=== PATIENT | female | born 1945 | race Caucasian/White ===

== ENCOUNTER 2019-11-04 11:29 | Observation (INO) | payer MEDICARE ==
[~2019-11-04] VITALS: Ht 162.6 cm; Wt 80.0 kg
[2019-11-04 12:24] LABS: BASOPHILS % (AUTO) 0.7 % (0-1); EOSINOPHILS # (AUTO) 0.3 X10'3 (0-0.9); EOSINOPHILS % (AUTO) 4.2 % (0-6); HEMATOCRIT 39.7 % (35.0-45.0); HEMOGLOBIN 13.4 g/dl (12.0-16.0); LYMPHOCYTES # (AUTO) 2.4 X10'3 (1.1-4.8); MEAN CORPUSCULAR HEMOGLOBIN 31.5 PG (27.0-31.0); MEAN CORPUSCULAR HGB CONC 33.6 g/dL (33.0-36.5); MEAN CORPUSCULAR VOLUME 93.8 FL (78-98); MEAN PLATELET VOLUME 9.5 FL (7.4-10.4); MONOCYTES # (AUTO) 0.6 X10'3 (0-0.9); MONOCYTES % (AUTO) 8.1 % (2-12); NEUTROPHILS # (AUTO) 4.2 X10'3 (1.8-7.7); PLATELET COUNT 173 X10'3 (140-440); RED BLOOD COUNT 4.24 X10'6 (4.20-5.60); RED CELL DISTRIBUTION WIDTH 13.6 % (11.5-14.5); WHITE BLOOD COUNT 7.6 X10'3 (4.5-11.0)
[2019-11-04 12:44] LABS: ALANINE AMINOTRANSFERASE 30 U/L (12-78); ALBUMIN 3.3 G/DL (3.4-5.0); ALBUMIN/GLOBULIN RATIO 0.9 (1.1-1.5); ALKALINE PHOSPHATASE 77 IU/L (46-116); ANION GAP 7 (8-16); ASPARTATE AMINO TRANSFERASE 20 U/L (10-37); BILIRUBIN,TOTAL 0.4 MG/DL (0.1-1.0); BLOOD UREA NITROGEN 13 MG/DL (7-18); BUN/CREATININE RATIO 17.1 (6.6-38.0); CALCIUM 8.7 MG/DL (8.5-10.1); CHLORIDE 108 MMOL/L (99-107); CREATININE 0.76 MG/DL (0.40-0.90); GLUCOSE 165 MG/DL (70-104); POTASSIUM 4.3 MMOL/L (3.5-5.1); SODIUM 141 MMOL/L (135-145); TOTAL CARBON DIOXIDE 25.7 MMOL/L (24-32); eGFR 75 ML/MIN
[2019-11-04] MEDS ORDERED: mag hydrox/Alum hydrox/simeth 30ml oral suspension PO PRN (13:55)
[2019-11-04] MEDS ORDERED: morphine 2 MG/ML inj. syringe IV PRN ×2 (13:55)
[2019-11-04] MEDS ORDERED: magnesium hydroxide 30ml (MOM) UD suspension PO PRN (13:55)
[2019-11-04] MEDS ORDERED: nitroGLYCERIN 0.4mg SUBLingual tab SL PRN ×3 (13:55→20:35)
[2019-11-04] MEDS ORDERED: HYDROcodone/acetaminophen 5mg/325mg tablet PO PRN (13:55)
[2019-11-04] MEDS ORDERED: ondansetron/PF 4mg/2ml inj IV PRN (13:55)
[2019-11-04] MEDS ORDERED: acetaminophen 325mg tablet PO PRN (13:55)
[2019-11-04] MEDS ORDERED: NITR0.4T48 SL (14:19)
[2019-11-04] MEDS ORDERED: METO-384 PO (14:19)
[2019-11-04] MEDS ORDERED: METF-437 PO (14:19)
[2019-11-04] MEDS ORDERED: LEVO50TA8 PO (14:19)
[2019-11-04] MEDS ORDERED: LOSA50TA64 PO (14:19)
[2019-11-04] MEDS ORDERED: ATOR40TA72 PO (14:19)
[2019-11-04] MEDS ORDERED: PANT40TA4 PO (14:19)
[2019-11-04] MEDS ORDERED: ESTR0.6261 PO (14:22)
[2019-11-04] MEDS ORDERED: MULT-1074 PO (14:22)
[2019-11-04] MEDS ORDERED: LACT1CAP65 PO (14:22)
--- NOTE | 2019-11-04 16:30 | NUR ---
RUSU AT BEDSIDE WITH PT
--- NOTE | 2019-11-04 17:06 | NUR ---
Patient to go to room 313. I have received report from CUONG Ernst and had the opportunity to ask questions and assume patient care.
[2019-11-04] MEDS ORDERED: iohexol 350MG/ML 100ml bottle IV ONE (17:10)
--- NOTE | 2019-11-04 17:46 | NUR ---
Patient arrived on unit at 1740. No s/sx distress, no needs at this time. Able to reposition self. Vital signs stable. A&Ox4.
[2019-11-04 18:00] VITALS: BP 141/59
[2019-11-04] MEDS: MESSAGE TO NURSING PO NR (18:00)
--- NOTE | 2019-11-04 18:10 | NUR ---
Problems reprioritized. Patient report given, questions answered & plan of care reviewed with CUONG Bejarano.
--- NOTE | 2019-11-04 18:33 | NUR ---
Patient in room ED 16. I have received report from Kari HUTCHINS and had the opportunity to ask questions and assume patient care.
[2019-11-04] MEDS: metoprolol succinate 25mg (24-HOUR) SR. Tablet PO SCH (19:42)
[2019-11-04] MEDS ORDERED: OXAZEpam 15mg capsule PO PRN (20:35)
[2019-11-04] MEDS ORDERED: aminophylline 250mg/10ml inj. IV PRN (20:35)
[2019-11-04] MEDS ORDERED: zolpidem 5mg tablet PO PRN (20:35)
[2019-11-04] MEDS ORDERED: cyclobenzaprine 10mg tablet PO PRN (20:35)
[2019-11-04] MEDS ORDERED: regadenoson 0.4mg/5ml syringe IV ONE (20:35)
[2019-11-04] MEDS ORDERED: metoprolol tartrate 1mg/ml inj IV PRN (20:35)
--- NOTE | 2019-11-04 20:40 | NUR ---
Dr. Pennington in to see patient. Orders to d/c remaining EKG's and troponins. Lexiscan and ECHO ordered. Patient aware of plans.
[2019-11-04] MEDS ORDERED: atorvastatin 20mg tablet PO SCH (21:00)
[2019-11-04 22:00] VITALS: BP 153/57
[2019-11-05] VITALS (10 sets, daily range): BP systolic 115–153; BP diastolic 56–71
[2019-11-05 05:52] LABS: BASOPHILS % (AUTO) 0.6 % (0-1); EOSINOPHILS # (AUTO) 0.3 X10'3 (0-0.9); EOSINOPHILS % (AUTO) 3.8 % (0-6); HEMATOCRIT 37.9 % (35.0-45.0); HEMOGLOBIN 12.7 g/dl (12.0-16.0); LYMPHOCYTES # (AUTO) 2.2 X10'3 (1.1-4.8); MEAN CORPUSCULAR HEMOGLOBIN 31.4 PG (27.0-31.0); MEAN CORPUSCULAR HGB CONC 33.6 g/dL (33.0-36.5); MEAN CORPUSCULAR VOLUME 93.5 FL (78-98); MEAN PLATELET VOLUME 9.2 FL (7.4-10.4); MONOCYTES # (AUTO) 0.5 X10'3 (0-0.9); MONOCYTES % (AUTO) 8.1 % (2-12); NEUTROPHILS # (AUTO) 3.7 X10'3 (1.8-7.7); NEUTROPHILS % (AUTO) 54.5 % (42-75); PLATELET COUNT 164 X10'3 (140-440); RED BLOOD COUNT 4.05 X10'6 (4.20-5.60); RED CELL DISTRIBUTION WIDTH 13.6 % (11.5-14.5); WHITE BLOOD COUNT 6.8 X10'3 (4.5-11.0)
[2019-11-05 06:10] LABS: ALBUMIN 2.9 G/DL (3.4-5.0); ANION GAP 8 (8-16); BLOOD UREA NITROGEN 12 MG/DL (7-18); BUN/CREATININE RATIO 12.9 (6.6-38.0); CALCIUM 8.5 MG/DL (8.5-10.1); CHLORIDE 107 MMOL/L (99-107); CREATININE 0.93 MG/DL (0.40-0.90); GLUCOSE 122 MG/DL (70-104); POTASSIUM 4.4 MMOL/L (3.5-5.1); SODIUM 143 MMOL/L (135-145); TOTAL CARBON DIOXIDE 27.6 MMOL/L (24-32); eGFR 59 ML/MIN
--- NOTE | 2019-11-05 06:10 | NUR ---
Patient in room MED 313. I have received report from CUONG Bejarano and had the opportunity to ask questions and assume patient care.
--- NOTE | 2019-11-05 06:15 | NUR ---
Problems reprioritized. Patient report given, questions answered & plan of care reviewed with Grisel HUTCHINS .
[2019-11-05] MEDS ORDERED: levoTHYROXINE 25mcg tablet PO SCH (07:00)
[2019-11-05] MEDS ORDERED: lactobacillus rhamnosus 10,000 MMU CELLS/CAPSULE PO SCH (08:00)
[2019-11-05] MEDS ORDERED: pantoprazole 40mg Tablet.DR PO SCH (08:00)
[2019-11-05] MEDS ORDERED: losartan 50mg tablet PO SCH (08:00)
[2019-11-05] MEDS ORDERED: estrogen, conjugated 0.625mg tablet PO SCH (08:00)
[2019-11-05] MEDS ORDERED: nitroGLYCERIN 0.4mg/hour patch TD SCH (08:00)
[2019-11-05] MEDS ORDERED: aspirin 81mg tablet.DR PO SCH (08:00)
[2019-11-05] MEDS ORDERED: metFORMIN 850mg tablet PO SCH (08:00)
--- NOTE | 2019-11-05 08:00 | NUR ---
Patient stated that she would not need to take her premarin today.
[2019-11-05] MEDS: metoprolol succinate 25mg (24-HOUR) SR. Tablet PO SCH (08:52)
--- NOTE | 2019-11-05 09:09 | NUR ---
DM consult: Pt with A1c 6.7, DM education not warranted at this time. Will continue to follow. Addendum: 11/05/19 at [address] Amended: Links added.
[2019-11-05] MEDS: MESSAGE TO NURSING PO NR (10:00)
--- NOTE | 2019-11-05 14:24 | NUR ---
Patient Jigar Lynne, has orders for carotid ultra sound. Can you call [facility] unit [facility] to let us know if study can be done today. Thank you, Garth Recinos RN [phone]
--- NOTE | 2019-11-05 17:15 | NUR ---
Patient is discharged by CUONG Morales charge nurse. Patient left in w/c with all instructions given and left with her . She was alert and oriented and in stable condition. PIV was removed by Charge nurse, CUONG Morales.
== END 2019-11-05 17:10 | disposition home or self-care (01) ==
LOC: ER 11:30 → ED HOLD 15:33 → EDBEDREQ 16:42 → MED 3N 18:46
PROVIDERS: ADMIT Internal Medicine; ATTEND Internal Medicine
DX: I20.0 Unstable angina (principal); E03.9 Hypothyroidism, unspecified; I10 Essential (primary) hypertension; R20.0 Anesthesia of skin; E78.5 Hyperlipidemia, unspecified; E11.9 Type 2 diabetes mellitus without complications; E78.00 Pure hypercholesterolemia, unspecified; J44.9 Chronic obstructive pulmonary disease, unspecified; I45.10 Unspecified right bundle-branch block; K21.9 Gastro-esophageal reflux disease without esophagitis; Z90.710 Acquired absence of both cervix and uterus; Z79.84 Long term (current) use of oral hypoglycemic drugs; Z79.899 Other long term (current) drug therapy
CPT/HCPCS: 36415; 70450; 71045; 71275; 78452; 80048; 80053; 82948; 83036; 83880; 84484; 85025; 87081; 93017; 93306; 93880; 99284; A9500; G0378; J0280; J2785; Q9967; 93005

== ENCOUNTER 2022-03-06 07:16 | Emergency (ER) | payer MEDICARE ==
[~2022-03-06] VITALS: Ht 149.9 cm; Wt 70.3 kg
[~2022-03-06 07:16] MED LIST: ATOR40TA72 PO; ESTR0.6261 PO; LACT1CAP65 PO; LEVO50TA8 PO; LOSA50TA64 PO; METF-437 PO; METO-384 PO; MULT-1074 PO; PANT40TA54 PO
--- NOTE | 2022-03-06 08:00 | NUR ---
Pt fell over a week ago and landed on her R knee. +Eccymosis from knee down to foot. Also, erythema around calf and [place] with a yellow pustule. +"Cramping" in R medial thigh.
[2022-03-06 08:32] VITALS: BP 147/70
[2022-03-06 08:36] LABS: BASOPHILS % (AUTO) 0.6 % (0-1); EOSINOPHILS # (AUTO) 0.3 X10'3 (0-0.9); EOSINOPHILS % (AUTO) 5.2 % (0-6); HEMOGLOBIN 11.5 g/dl (12.0-16.0); LYMPHOCYTES # (AUTO) 1.6 X10'3 (1.1-4.8); LYMPHOCYTES % (AUTO) 24.9 % (21-51); MEAN CORPUSCULAR HEMOGLOBIN 29.6 PG (27.0-31.0); MEAN CORPUSCULAR HGB CONC 32.8 g/dL (33.0-36.5); MEAN CORPUSCULAR VOLUME 90.5 FL (78-98); MEAN PLATELET VOLUME 9.4 FL (7.4-10.4); MONOCYTES # (AUTO) 0.6 X10'3 (0-0.9); MONOCYTES % (AUTO) 9.6 % (2-12); NEUTROPHILS # (AUTO) 3.9 X10'3 (1.8-7.7); NEUTROPHILS % (AUTO) 59.7 % (42-75); PLATELET COUNT 206 X10'3 (140-440); RED BLOOD COUNT 3.87 X10'6 (4.20-5.60); RED CELL DISTRIBUTION WIDTH 15.3 % (11.5-14.5); WHITE BLOOD COUNT 6.5 X10'3 (4.5-11.0)
[2022-03-06 08:38] LABS: ALANINE AMINOTRANSFERASE 23 U/L (12-78); ALBUMIN 3.2 G/DL (3.4-5.0); ALBUMIN/GLOBULIN RATIO 0.9 (1.1-1.5); ALKALINE PHOSPHATASE 77 IU/L (46-116); ANION GAP 9 (8-16); ASPARTATE AMINO TRANSFERASE 16 U/L (10-37); BILIRUBIN,TOTAL 0.4 MG/DL (0.1-1.0); BLOOD UREA NITROGEN 12 MG/DL (7-18); BUN/CREATININE RATIO 15.6 (6.6-38.0); CALCIUM 8.8 MG/DL (8.5-10.1); CHLORIDE 106 MMOL/L (99-107); CREATININE 0.77 MG/DL (0.40-0.90); GLUCOSE 164 MG/DL (70-104); POTASSIUM 3.8 MMOL/L (3.5-5.1); SODIUM 141 MMOL/L (135-145); TOTAL CARBON DIOXIDE 26.5 MMOL/L (24-32); TOTAL PROTEIN 6.8 G/DL (6.4-8.2); eGFR 73 ML/MIN
[2022-03-06] MEDS ORDERED: ASPI-1265 PO (08:41)
[2022-03-06] MEDS ORDERED: sulfamethoxazole/trimethoprim DS (800/160mg) tablet PO ONE (09:15)
[2022-03-06] MEDS ORDERED: ondansetron 4mg rapidly disintigrating tab PO ONE (09:15)
[2022-03-06] MEDS ORDERED: SULF1TAB48 PO (09:21)
== END 2022-03-06 10:27 | disposition home or self-care (01) ==
LOC: ER 07:16
DX: L03.115 Cellulitis of right lower limb (principal); E78.00 Pure hypercholesterolemia, unspecified; I10 Essential (primary) hypertension; J44.9 Chronic obstructive pulmonary disease, unspecified; E11.9 Type 2 diabetes mellitus without complications; Z87.19 Personal history of other diseases of the digestive system; Z90.710 Acquired absence of both cervix and uterus; Z79.82 Long term (current) use of aspirin; Z79.899 Other long term (current) drug therapy
CPT/HCPCS: 36415; 73564; 80053; 83880; 84145; 85025; 85610; 93971; 99285

== ENCOUNTER 2022-03-14 10:03 | Emergency (ER) | payer MEDICARE ==
[~2022-03-14] VITALS: Ht 149.9 cm; Wt 68.2 kg
[~2022-03-14 10:03] MED LIST changes: +ASPI-1265 PO; +SULF1TAB48 PO
--- NOTE | 2022-03-14 13:11 | NUR ---
tractor trailer technician at bedside.
[2022-03-14 13:15] VITALS: BP 149/63
[2022-03-14 13:19] LABS: BASOPHILS % (AUTO) 0.4 % (0-1); EOSINOPHILS # (AUTO) 0.5 X10'3 (0-0.9); EOSINOPHILS % (AUTO) 7.1 % (0-6); HEMATOCRIT 38.3 % (35.0-45.0); HEMOGLOBIN 12.4 g/dl (12.0-16.0); LYMPHOCYTES # (AUTO) 2.1 X10'3 (1.1-4.8); LYMPHOCYTES % (AUTO) 28.2 % (21-51); MEAN CORPUSCULAR HEMOGLOBIN 29.5 PG (27.0-31.0); MEAN CORPUSCULAR HGB CONC 32.5 g/dL (33.0-36.5); MONOCYTES # (AUTO) 0.6 X10'3 (0-0.9); MONOCYTES % (AUTO) 8.5 % (2-12); NEUTROPHILS # (AUTO) 4.1 X10'3 (1.8-7.7); NEUTROPHILS % (AUTO) 55.8 % (42-75); PLATELET COUNT 203 X10'3 (140-440); RED BLOOD COUNT 4.21 X10'6 (4.20-5.60); RED CELL DISTRIBUTION WIDTH 15.6 % (11.5-14.5); WHITE BLOOD COUNT 7.3 X10'3 (4.5-11.0)
[2022-03-14 13:43] LABS: ALANINE AMINOTRANSFERASE 20 U/L (12-78); ALBUMIN 3.6 G/DL (3.4-5.0); ALKALINE PHOSPHATASE 70 IU/L (46-116); ANION GAP 10 (8-16); ASPARTATE AMINO TRANSFERASE 16 U/L (10-37); BILIRUBIN,TOTAL 0.3 MG/DL (0.1-1.0); BLOOD UREA NITROGEN 16 MG/DL (7-18); BUN/CREATININE RATIO 17.6 (6.6-38.0); C-REACTIVE PROTEIN 0.21 MG/DL (0.0-0.5); CALCIUM 8.9 MG/DL (8.5-10.1); CHLORIDE 108 MMOL/L (99-107); CREATININE 0.91 MG/DL (0.40-0.90); GLUCOSE 85 MG/DL (70-104); POTASSIUM 4.8 MMOL/L (3.5-5.1); SODIUM 143 MMOL/L (135-145); TOTAL CARBON DIOXIDE 24.8 MMOL/L (24-32); TOTAL PROTEIN 7.3 G/DL (6.4-8.2); eGFR 60 ML/MIN
--- NOTE | 2022-03-14 13:44 | NUR ---
Becky osorio in [facility] - 03/14/22 at 1344 by NOA susantte collected by Dr Mullen
== END 2022-03-14 14:24 | disposition home or self-care (01) ==
LOC: ER 10:04
DX: L50.9 Urticaria, unspecified (principal); E78.00 Pure hypercholesterolemia, unspecified; I10 Essential (primary) hypertension; J44.9 Chronic obstructive pulmonary disease, unspecified; E11.9 Type 2 diabetes mellitus without complications; Z79.899 Other long term (current) drug therapy
CPT/HCPCS: 36415; 80053; 85025; 85651; 86140; 99283

== ENCOUNTER 2025-10-08 15:32 | Emergency (ER) | payer MEDICARE ==
[~2025-10-08] VITALS: Ht 149.9 cm; Wt 51.1 kg
[~2025-10-08 15:32] MED LIST changes: -SULF1TAB48 PO
[2025-10-08 16:16] LABS: MEAN PLATELET VOLUME 8.3 FL (7.4-10.4); RED CELL DISTRIBUTION WIDTH 13.9 % (11.5-14.5)
[2025-10-08 16:37] LABS: CREATININE 2.24 MG/DL (0.40-0.90); TOTAL CARBON DIOXIDE 28.2 MMOL/L (24-32); eCRCL 14 ML/MIN; eGFR 21 ML/MIN
[2025-10-08 17:23] LABS: UA COLLECTION TYPE OTHER
[2025-10-08 17:26] LABS: MUCUS STRANDS MANY /LPF (Neg)
[2025-10-08 17:27] LABS: SQUAMOUS EPITHELIAL CELL,UR NONE SEEN /LPF (FEW)
[2025-10-08 17:28] LABS: TRIPLE PHOSPHATE CRYST 3+ /HPF (NEGATIVE)
--- NOTE | 2025-10-08 17:50 | Physician Documentation ---
History of Present Illness Chief Complaint: Post-operative complication Stated Complaint: POST OP COMPLICATIONS Time Seen by MD: 17:37 Primary Medical Doctor: dr gill HPI 80-year-old female presents to the ED after having a cystectomy in June at [facility] via Dr. Eden. Her coming home with a proximally a week patient developed abdominal pain and was transferred back to [facility] for a SBO. The family states they are not sure what caused the SBO but the physician suspected swelling from the surgery.Currently has a urostomy in his producing urine . 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 She was then sent back to [facility] and placed on TPN for two months. After this fully resolved a CT scan with barium swallow indicated that she was now gastrointestinal early clear. For the last month she has had intermittent abdominal pain in the pelvic region along with severe nausea and very little oral intake. She says she really has not felt well since the surgery. Adds that she has been vomiting profusely the last four days. States he has been losing a proximally a lb a day. Denies any dysuria or urinary symptom Day of Onset: Oct 08, 2025 Medication Reconciliation Allergies: Coded Allergies: morphine (Verified Allergy, Severe, BLISTERS, 10/08/25) codeine (Verified Allergy, Intermediate, STOMACHE, 10/08/25) Scheduled Aspirin (Aspirin), 1 TAB PO DAILY, (Reported) Atorvastatin Calcium (Atorvastatin Calcium), 1 TAB PO HS, (Reported) Estrogens,Conjugated* (Premarin*), 1 TAB PO DAILY, (Reported) Lactobacillus Acidophilus (Probiotic), 1 CAP PO DAILY, (Reported) Levothyroxine Sodium (Levothyroxine Sodium), 0.5 TAB PO DAILY, (Reported) Losartan Potassium (Losartan Potassium), 1 TAB PO DAILY, (Reported) Metformin Hcl (Metformin Hcl), 1 TAB PO DAILY, (Reported) Metoprolol Succinate (Metoprolol Succinate), 1 TAB PO BID, (Reported) Mirtazapine (Remeron), 1 TAB PO HS, (Reported) Pantoprazole Sodium (Pantoprazole Sodium), 1 TAB PO DAILY, (Reported) Miscellaneous Medications Multivitamin (Multi-Vitamin Daily), 1 EACH PO, (Reported) Past Medical History Past Medical History: High Cholesterol, Hypertension, COPD, Diverticulitis, Diverticulosis, Diabetes, C-Diff Past Surgical History: noncontributory, hysterectomy Alcohol Use: None Drug Use: none Lives In: Home Review of Systems All Other Systems at this time: Reviewed and Negative ROS As stated above in the HPI, otherwise all systems are reviewed and negative. Physical Exam Vital Signs: Temperature: 98.7, Source: Oral, Heart Rate: 115, Respiratory Rate: 14, BP: 106/42, Pulse Oximetry: 94, Weight: 51.100 Oxygen Flow Rate: 0 Physical Exam General: Alert, no apparent distress. Respiratory: Lungs clear, no respiratory distress. Cardiovascular: Regular rate and rhythm, no murmurs. Genitourinary: Urostomy right lateral patent Gastrointestinal: Soft, nontender, nondistended. Bowels sounds present. Extremities: Normal range of motion, no deformity. Neurologic: Oriented x4. Psychiatric: Normal mood and affect. Skin: Normal color, warm and dry. No edema, no ecchymosis. Progress Progress Note That has able to speak with urologist at [facility] on-call Dr. Villanueva, phone number [phone]. He is able to compare our images to images at [facility] and hydronephrosis appears similar possibly a little larger. Recommend repeating labs and to call back regarding lab values and disposition. Oncoming doctor to follow this up. Results/Orders Results/Orders Orders - EMANUEL MEYERS CNC MACHINIST Ct Abdomen Pelvis (10/08/25 17:40) Procalcitonin (10/08/25 17:40) Culture Blood (10/08/25 17:43) Lacticsepsis (10/08/25 17:43) Ondansetron Inj. (Zofran 4mg/2ml Vial) (10/08/25 17:45) Normal Saline Bolus (10/08/25 17:45) Ceftriaxone 2gm/D5w 50ml Bag (Rocephin 2 (10/08/25 17:45) Vital Signs 10/08/25 10/08/25 15:34 17:45 Temp 98.7 98.7 Pulse 115 115 Resp 18 14 B/P (MAP) 152/110 106/42 (63) Pulse Ox 94 94 O2 Flow Rate 0 0 Laboratory Tests Test 10/08/25 15:45 10/08/25 15:58 Urine Specimen Description Other Urine Color Yellow Urine Clarity Turbid Urine pH Urine Specific [place] Urine Protein Urine Glucose (UA) Urine Ketones Urine Occult Blood Urine Nitrite Urine Bilirubin Urine Urobilinogen Urine Leukocyte Esterase Urine RBC 20-50 Urine WBC 10-20 H Urine Squamous Epithelial Cells None seen Urine Transitional Epithelial Cells Few Urine Triple Phosphate Crystals 3+ Urine Bacteria 4+ Urine Mucus Many Urine Culture Indicated Indicated Volume Urine Centrifuged 10 ml Urine Comment White Blood Count 16.4 H Red Blood Count 3.84 L Hemoglobin 11.7 L Hematocrit 35.1 Mean Corpuscular Volume 91.5 Mean Corpuscular Hemoglobin 30.4 Mean Corpuscular Hemoglobin Concent 33.2 Red Cell Distribution Width 13.9 Platelet Count 457 H Mean Platelet Volume 8.3 Neutrophils (%) (Auto) 81.9 H Lymphocytes (%) (Auto) 10.3 L Monocytes (%) (Auto) 6.9 Eosinophils (%) (Auto) 0.3 Basophils (%) (Auto) 0.6 Neutrophils # (Auto) 13.5 H Lymphocytes # (Auto) 1.7 Monocytes # (Auto) 1.1 H Eosinophils # (Auto) 0.1 Basophils # (Auto) 0.1 CBC Comment Sodium Level 137 Potassium Level 5.0 Chloride Level 96 L Carbon Dioxide Level 28.2 Anion Gap 13 Blood Urea Nitrogen 56 H Creatinine 2.24 H Estimated GFR/1.73 m2 21 BUN/Creatinine Ratio 25.0 H Glucose Level 162 H Calcium Level 10.6 H Total Bilirubin 0.6 Aspartate Amino Transf (AST/SGOT) 48 H Alanine Aminotransferase (ALT/SGPT) 101 H Alkaline Phosphatase 264 H Total Protein 9.2 H Albumin 2.6 L Globulin 6.6 H Albumin/Globulin Ratio 0.4 L Lipase 28 Chemistry Comments Medical Decision Making Additional information obtaine: old records Findings Patient currently presents with evidence of a UTI however incidentally the the nursing staff collected stagnant urine that had already been in the urostomy bag for an extended period of time. Requesting new urine sample at this time'. Patient presented to the emergency room for evaluation of abdominal pain and inability to tolerate p.o.. Patient found to be in acute renal failure and also having urinary tract infection. I have spoken with on-call urologist, Dr. Villanueva who is willing to take correspondence today for the patient. We are able to contact that has doctor and we will arrange for transfer that has patient that has high-risk. Differential Dx:Considerations: -Incomplete, -Threatened, Aortic dissection, Constipation, Gastritis/PUD Departure Disposition: 02 SHORT TERM [facility]OSPITAL Impression: Primary Impression: Acute kidney injury Additional Impressions: Urinary tract infection Hydronephrosis, right Condition: Stable Referrals: NO PRIMARY CARE PROVIDER (PCP) Critical Care Note Total Time (mins): 69 Critical Care Note The very real possibility of a deterioration of this patient's condition required the highest level of my preparedness for sudden, emergent intervention. I provided critical care services, which included medication orders, frequent reevaluations of the patient's condition and response to treatment, ordering and reviewing test results, and discussing the case with various consultants. Excludes time spent performing separately billable procedures. The critical care time associated with the care of the patient was 69 minutes not counting procedures Additional Comment Additional Comment Date: Oct 09, 2025 Time: 15:05 Additional note by Rusty Cordon, DO: I took over the care of this patient from previous physician. I reviewed any previous notes available, obtain my own history, review of systems and physical examination was performed by myself. This patient was signed out pending imaging as well as repeat laboratory studies. She presented for evaluation of right flank pain. Her laboratory studies notable for [place], UTI. The repeat labs showed slight improvement of white count, persistent neutrophilic predominance, slight improvement of kidney function not returning to baseline. CT showed right-sided hydronephrosis. We have made attempts to get a hold of Dr. Villanueva at [facility], urologist on-call. He kindly call us back and consulted with the patient. After discussing the patient's clinical picture, and considering that we do not have IR services, he requests the patient to be transferred to [facility] for further management of her disease. CRITICAL CARE TIME: [35] minutes Treatments/Evaluations: Close monitoring and treatment of unstable vital signs, cardiorespiratory, and neurologic status, while maintaining tight balance of fluid, respiratory, and cardiac interventions. This time includes discussing the case with the patient and the patients family. This time does not include all procedures stated elsewhere in this record. This time also includes reviewing old records, labs and radiological studies. This time includes examining and re- examining the patient. Additionally, this time also includes arranging care with admitting and consulting physicians. Signature Scribe Signature: No scribe Attestation: The note accurately reflects work and decisions made by me.Karan Emery MD 10/10/25 02:29 Date: Oct 09, 2025 Time: 15:07 This note accurately reflects clinical decisions, work performed by myself, DO MIRA Redd JUSTIN H NP Oct 08, 2025 17:50 KARAN EMERY MD Oct 09, 2025 06:00 RUSTY CORDON DO Oct 09, 2025 15:08
--- NOTE | 2025-10-08 18:36 | RADIOLOGY REPORT ---
Indication: abd pain post cystectomy Technique: CT axial images of the abdomen and pelvis are obtained without contrast. Coronal and sagittal reformats were obtained. Radiation Dose Information: CTDI volume is 8.3 mGy. Dose-length product is 409 mGy*cm Comparison: None FINDINGS: There is limited interpretation of the abdomen and pelvis without administration of intravenous contrast. Lung bases demonstrate 4 mm right middle lobe soft tissue nodule. Adrenal glands, spleen unremarkable in shape. Pancreas unremarkable in shape. Duodenal diverticulum measuring 1.[address] evidence for cholelithiasis. Hydropic/Distended gallbladder. 2.6 cm left hepatic lobe cyst. Left kidney demonstrates no hydronephrosis. The right kidney demonstrates moderate hydroureteronephrosis. Right perinephric stranding. Right abdominal ileal conduit. Stomach is partially distended. Small bowel loops normal in caliber. Colonic diverticula. Moderate volume stool in the colon. No secondary signs for appendicitis. Abdominal aortic atherosclerotic disease. Cholecystectomy changes. No significant free pelvic fluid. No inguinal lymphadenopathy. [id number] bilateral sacroiliac degenerative joint disease. [id number] thoracolumbar degenerative disc disease. There is haziness and stranding in the upper abdominal mesentery with mild nodularity. IMPRESSION: Limited evaluation without contrast. Status post cystectomy. Right lower quadrant ileal conduit. Moderate right hydroureteronephrosis. Correlate for ureteral enteric stricture, tumoral recurrence and other etiologies. Hydropic/Distended gallbladder. Recommend HIDA scan to exclude cholecystitis. 4 mm right middle lobe soft tissue nodule. Recommend follow-up per Fleischner society criteria. Colonic diverticular disease. Haziness and stranding of the upper abdominal mesentery with a nodularity which could represent carcinomatosis/omental caking, sequela of infectious/inflammatory processes. Correlate with oncology history. PET scan can be obtained to further characterize. Other findings as described.
[2025-10-08] MEDS: CefTRIAXone 2gm/D5W 50ml BAG 50 ML IV STA (18:54)
[2025-10-08] MEDS: ondansetron/PF 4mg/2ml inj IV ONE (18:54)
[2025-10-08] MEDS: normal saline 1000ML IV soln IVB ONE ×2 (18:54→18:55)
--- NOTE | 2025-10-08 19:57 | RADIOLOGY REPORT ---
EXAM: US ULTRASOUND OF ABDOMEN HISTORY: Cholecystitis COMPARISON: CT CT ABDOMEN PELVIS on DOS: 10/08/25 TECHNIQUE: Real-time grayscale and color flow images of the abdomen were obtained. FINDINGS: LIVER: Liver measures 12.7 cm craniocaudal. Liver parenchyma is homogeneous in echotexture. No intrahepatic ductal dilatation. Normal directional flow is seen in the portal vein. GALLBLADDER: No gallstones. The gallbladder appears distended. No gallbladder wall edema or pericholecystic fluid. Gallbladder wall thickness is 2 mm. No sonographic ling sign. COMMON BILE DUCT: 6 mm. KIDNEYS: The right kidney measures 11.4 cm in length. There is hydronephrosis. There is no renal calculus or mass. IMPRESSION: 1. Distended gallbladder without cholelithiasis or sonographic evidence of acute cholecystitis. 2. Right hydronephrosis
[2025-10-08] MEDS: acetaminophen 1,000mg/100ml IV 100 ML IV ONE (20:21)
[2025-10-08] MEDS ORDERED: MIRT-142 PO (23:26)
[2025-10-09] MEDS: haloperidol lactate 5mg/ml inj IM ONE (02:19)
[2025-10-09 07:27] LABS: MEAN PLATELET VOLUME 7.8 FL (7.4-10.4); RED CELL DISTRIBUTION WIDTH 13.6 % (11.5-14.5)
[2025-10-09 07:38] LABS: CREATININE 1.86 MG/DL (0.40-0.90); TOTAL CARBON DIOXIDE 24.4 MMOL/L (24-32); eCRCL 17 ML/MIN; eGFR 26 ML/MIN
[2025-10-09] MEDS: fentaNYL/PF 50MCG/1 ML 2ML syringe IV ONE ×2 (09:34→17:29)
[2025-10-09 19:02] VITALS: BP 136/68; PULSE 109; RESP 20; TEMP 100.5; O2SAT 95
[2025-10-09] MEDS: CefTRIAXone/D5W-Rocephin 1gm 50 ML IV ONE (19:07)
== END 2025-10-09 19:08 | disposition short-term general hospital (02) ==
LOC: ER 15:33
DX: N13.30 Unspecified hydronephrosis (principal); N39.0 Urinary tract infection, site not specified; N17.9 Acute kidney failure, unspecified; E11.9 Type 2 diabetes mellitus without complications; E78.00 Pure hypercholesterolemia, unspecified; I10 Essential (primary) hypertension; J44.9 Chronic obstructive pulmonary disease, unspecified; Z88.5 Allergy status to narcotic agent; Z90.710 Acquired absence of both cervix and uterus; Z79.82 Long term (current) use of aspirin; Z79.899 Other long term (current) drug therapy
CPT/HCPCS: 36415; 74176; 76700; 80048; 80053; 81001; 82948; 83605; 83690; 84145; 85025; 87040; 87077; 87088; 87186; 96365; 96367; 96375; 96376; 99291; J0131; J0696; J1630; J2060; J2405; J3010; J7030; J7040; 99285